=== PATIENT | female | born 1990 | race Two or more races ===

== ENCOUNTER 2025-04-27 03:21 | Inpatient (IN) | payer OTHER ==
[~2025-04-27] VITALS: Ht 167.6 cm; Wt 77.1 kg
[2025-04-27 02:53] VITALS: BP 94/61
[2025-04-27] MEDS ORDERED: RINGERS SOLUTION,LACTATED 1,000 ML IV SCH (03:30)
[2025-04-27] MEDS ORDERED: AMPICILLIN SODIUM 2,000 MG VIAL IV ONE (03:30)
[2025-04-27] MEDS ORDERED: ACETAMINOPHEN 500 MG GEL..CAP PO PRN (03:30)
[2025-04-27] MEDS ORDERED: BETAMETHASONE ACETATE,SOD PHOS 30 MG/5 ML ML IM SCH (03:30)
[2025-04-27] MEDS ORDERED: PRENATAL TABLE1 EAC1 (03:54)
[2025-04-27] MEDS ORDERED: IRON325 MG PO (03:55)
[2025-04-27] MEDS ORDERED: AMPICILLIN SODIUM 1,000 MG VIAL IV SCH (04:00)
[2025-04-27 06:18] LABS: BASO % 0.4 % (0.1-1.2); EOS # 0.17 (0.04-0.54); EOS % 2.3 % (0.7-7.0); LYMPH # 1.85 (1.18-3.74); LYMPH % 24.9 % (19.3-53.1); MEAN PLATELET VOLUME 10.90 fl (9.4-12.4); MONO # 0.51 (0.24-0.82); MONO % 6.9 % (4.7-12.5); NEUT # 4.83 (1.56-6.13); NEUT % 64.8 % (34.0-71.1); RED CELL DISTRIBUTION WIDTH 16.4 % (11.6-14.4)
[2025-04-27 06:34] LABS: INR 0.96
[2025-04-27 07:21] LABS: ALT/SGPT 12.0 U/L (12-78); AST/SGOT 10.0 U/L (15-37); BILIRUBIN TOTAL 0.27 mg/dL (0.3-1.2); BUN CREA RATIO 17.0 (7.0-25.0); CREATININE SERUM 0.42 mg/dL (0.55-1.02); GFR 170.71; GLOBULINA 4.1 G/DL (2.4-3.5); GLUCOSE FASTING 70.0 mg/dL (65-100); OSMOLALITY SERUM 280.0 MOSM/KG (275-295)
[2025-04-27 07:56] VITALS: BP 104/76
[2025-04-27] MEDS ORDERED: ERYTHROMYCIN BASE OPHT 1GM EACH TUBE OP ONE (08:31)
[2025-04-27] MEDS ORDERED: LIDOCAINE HCL 1% 10ML VIAL ONE (08:32)
[2025-04-27] MEDS ORDERED: CHLORHEXIDINE GLUCONATE 120 ML BOTTLE TOP ONE ×2 (08:32→12:30)
[2025-04-27] MEDS ORDERED: OXYTOCIN 20 UNITS/1000ML RL PIGGYBAG IV ONE (08:32)
[2025-04-27] MEDS ORDERED: MORPHINE SULFATE 4 MG/ML VIAL IV ONE (09:15)
[2025-04-27 10:49] VITALS: BP 113/75
[2025-04-27 11:05] VITALS: BP 119/75
[2025-04-27] MEDS ORDERED: OXYTOCIN 1,000 ML IV SCH (12:30)
[2025-04-27] MEDS ORDERED: KETOROLAC TROMETHAMINE 30 MG VIAL IV NR (12:30)
[2025-04-27 13:33] VITALS: BP 119/76
[2025-04-27] MEDS ORDERED: DOCUSATE SODIUM 100MG CAP PO SCH (17:00)
[2025-04-27 17:08] VITALS: BP 119/76
[2025-04-27 19:13] LABS: BASO % 0.1 % (0.1-1.2); EOS # 0.00 (0.04-0.54); EOS % 0.0 % (0.7-7.0); LYMPH # 1.16 (1.18-3.74); LYMPH % 7.9 % (19.3-53.1); MEAN PLATELET VOLUME 10.80 fl (9.4-12.4); MONO # 0.73 (0.24-0.82); MONO % 5.0 % (4.7-12.5); NEUT # 12.59 (1.56-6.13); NEUT % 86.2 % (34.0-71.1); RED CELL DISTRIBUTION WIDTH 17.2 % (11.6-14.4)
[2025-04-28 01:23] VITALS: BP 101/75
[2025-04-28] MEDS ORDERED: BETAMETHASONE ACETATE,SOD PHOS 30 MG/5 ML ML IM NR (03:30)
[2025-04-28] MEDS ORDERED: SOD FERRIC GLUC COMPLX/SUCROSE 62.5 MG/5 ML AMPUL IV SCH (09:00)
[2025-04-28 09:06] VITALS: BP 120/86
[2025-04-28 19:12] VITALS: BP 116/75
[2025-04-28 19:29] LABS: COVID-19 AG NEGATIVE (NEGATIVE)
[2025-04-29] VITALS: BP 107/65
[2025-04-29 10:26] VITALS: BP 110/62
[2025-04-29 16:44] VITALS: BP 114/75
== END 2025-04-29 17:01 | disposition home or self-care (01) | DRG 805 ==
LOC: LDR 03:21 → OB/GYN 03:21
PROVIDERS: ADMIT General Practice; ATTEND General Practice
PROC: 10E0XZZ Delivery of Products of Conception, External Approach (ICD-10-PCS; principal; 2025-04-27)
PROC: 0KQM0ZZ Repair Perineum Muscle, Open Approach (ICD-10-PCS; 2025-04-27)
PROC: 4A1HXCZ Monitoring of Products of Conception, Cardiac Rate, External Approach (ICD-10-PCS; 2025-04-27)
DX: O70.1 Second degree perineal laceration during delivery (principal); O60.14X0 Preterm labor third trimester with preterm delivery third trimester, not applicable or unspecified; Z37.0 Single live birth; Z3A.36 36 weeks gestation of pregnancy